=== PATIENT | male | born 1940 | race Caucasian/White ===

== ENCOUNTER 2018-11-28 15:11 | Inpatient (IN) | payer OTHER ==
[~2018-11-28] VITALS: Ht 170.2 cm; Wt 74.1 kg
[2018-11-28] VITALS (10 sets, daily range): BP systolic 42–104; BP diastolic 31–66
[2018-11-28] MEDS ORDERED: ONDANSETRON HCL 4MG/2ML INJ IV STA (15:39)
[2018-11-28] MEDS ORDERED: SODIUM CHLORIDE 0.9% 1,000 ML IV ONE ×3 (15:39→17:41)
[2018-11-28] MEDS ORDERED: MORPHINE SULFATE 4 MG/ML CPJ (NOT FOR IM USE) IV STA (15:39)
[2018-11-28 16:09] LABS: BASOPHILS % 0.6 % (0.0-2.0); EOSINOPHILS % 1.7 % (0.0-5.0); HEMATOCRIT. 43.1 % (42.0-52.0); HEMOGLOBIN. 13.5 g/dL (14.0-18.0); LYMPHOCYTES % 12.1 % (20.0-50.0); MEAN CORPUSCULAR HEMOGLOBIN 24.2 pg (28.0-32.0); MEAN PLATELET VOLUME 7.9 fl (7.4-10.4); MONOCYTES % 5.2 % (2.0-8.0); NEUTROPHILS % 80.4 % (40.0-76.0); PLATELET 376 x1000/uL (130-400); RED BLOOD CELL COUNT 5.59 mill/uL (4.7-6.1)
[2018-11-28 16:11] LABS: CHLORIDE 108 mEq/L (98-107)
[2018-11-28 16:12] LABS: INR 1.1; PROTHROMBIN TIME 11.6 sec (9.6-11.0)
[2018-11-28] MEDS ORDERED: SODIUM CHLORIDE 0.9% 1000ML BAG (SEPSIS BOLUS) IV ONE (16:45)
[2018-11-28] MEDS ORDERED: PIPERACILLIN/TAZ 3.375G PREMIX 50 ML IV ONE (16:45)
[2018-11-28] MEDS ORDERED: METRONIDAZOLE 500 MG PREMIX 100 ML IV ONE (17:30)
[2018-11-28] MEDS ORDERED: VANCOMYCIN 1 G PREMIX 200 ML IV ONE (17:30)
[2018-11-28] MEDS ORDERED: BUPIVACAINE HCL 0.5% (5MG/ML) 50ML ONE (17:45)
[2018-11-28] MEDS ORDERED: FENTANYL CITRATE/PF 50MCG/ML 2ML VIAL ONE (18:54)
[2018-11-28] MEDS ORDERED: ROCURONIUM BROMIDE 10MG/ML VIAL 5ML IV ONE ×2 (18:54→21:10)
[2018-11-28] MEDS ORDERED: MIDAZOLAM HCL 2 MG/2 ML VIAL ONE (18:54)
[2018-11-28] MEDS ORDERED: LIDOCAINE HCL/PF 1% 10 MG/ML 5ML VIAL ONE (18:54)
[2018-11-28] MEDS ORDERED: NEOSTIGMINE METHYLSULFATE 1MG/ML 10 ML VIAL ONE (18:54)
[2018-11-28] MEDS ORDERED: ETOMIDATE 2MG/ML 10ML VIAL IV ONE (18:54)
[2018-11-28] MEDS ORDERED: GLYCOPYRROLATE 0.2 MG/ML 2ML VIAL ONE (18:54)
[2018-11-28] MEDS ORDERED: NOREPINEPHRINE 4 MG in DEXTROSE 5% WATER 250 ML IV ONE (19:15)
[2018-11-28 20:06] LABS: BG BASE EXCESS -16.5 mmol/L (-2.0-2.0); BG CARBOXYHEMOGLOBIN 0.2 % (0.5-1.5); BG FRACTION INSPIRED OXYGEN 100; BG HCO3 ACT 13.6 mmol/L (22.0-26.0); BG METHEMOGLOBIN 0.5 % (0.0-1.5); BG OXYGEN SATURATION 91.9 % (92.0-98.5); BG OXYHEMOGLOBIN 91.3 % (94.0-97.0); BG PCO2 50.6 mmHg (35.0-45.0); BG PH 7.047 (7.350-7.450); BG PO2 87.7 mmHg (75.0-100.0); BG SAMPLE SITE LEFT RADIAL; BG TOTAL HEMOGLOBIN 11.3 g/dL (12.0-18.0); BG VENT MODE VENT - A/C
[2018-11-28] MEDS ORDERED: ONDANSETRON HCL 4MG/2ML INJ ONE (20:46)
[2018-11-28 22:46] LABS: BG BASE EXCESS -17.6 mmol/L (-2.0-2.0); BG CARBOXYHEMOGLOBIN 0.2 % (0.5-1.5); BG DEOXYHEMOGLOBIN 8.9 % (0.0-5.0); BG FRACTION INSPIRED OXYGEN 100; BG HCO3 ACT 13.4 mmol/L (22.0-26.0); BG METHEMOGLOBIN 0.5 % (0.0-1.5); BG OXYHEMOGLOBIN 90.4 % (94.0-97.0); BG PCO2 55.2 mmHg (35.0-45.0); BG PH 7.004 (7.350-7.450); BG PO2 88.4 mmHg (75.0-100.0); BG PRESSURE SUPPORT 10; BG SAMPLE SITE A-LINE; BG TIDAL VOLUME(mL) 500 mL; BG TOTAL HEMOGLOBIN 11.6 g/dL (12.0-18.0); BG VENT MODE VENT - SIMV; BG VENT RATE 10 set
[2018-11-28] MEDS ORDERED: SODIUM CHLORIDE 0.9% 500 ML IV ONE (23:00)
[2018-11-28] MEDS ORDERED: SODIUM BICARBONATE 8.4% 1 MEQ/ML 50ML SYR IV NR (23:00)
[2018-11-28] MEDS ORDERED: PROPOFOL 10MG/ML 100ML 100 ML IV PRN (23:00)
[2018-11-28] MEDS ORDERED: PHENYLEPHRINE 40 MG in DEXT 5% WATER 246 ML IV PRN (23:15)
[2018-11-28] MEDS: SODIUM BICARBONATE 100 MEQ in DEXTROSE 5% WATER 1,000 ML IV SCH (23:59)
[2018-11-29] VITALS (85 sets, daily range): BP systolic 24–244; BP diastolic -5–290
[2018-11-29] MEDS: PHENYLEPHRINE 40 MG in DEXT 5% WATER 246 ML IV PRN ×5 (00:01→13:37)
[2018-11-29] MEDS: IPRATROPIUM BROMIDE (0.02%) 0.5MG/2.5ML NEB HHN PRN ×2 (00:13→04:28)
[2018-11-29 00:50] LABS: BG BASE EXCESS -13.6 mmol/L (-2.0-2.0); BG CARBOXYHEMOGLOBIN 0.4 % (0.5-1.5); BG DEOXYHEMOGLOBIN 17.3 % (0.0-5.0); BG FRACTION INSPIRED OXYGEN 100; BG METHEMOGLOBIN 0.4 % (0.0-1.5); BG OXYGEN SATURATION 82.6 % (92.0-98.5); BG OXYHEMOGLOBIN 81.9 % (94.0-97.0); BG PCO2 38.8 mmHg (35.0-45.0); BG PH 7.175 (7.350-7.450); BG PO2 57.1 mmHg (75.0-100.0); BG SAMPLE SITE A-LINE; BG TIDAL VOLUME(mL) 500 mL; BG TOTAL HEMOGLOBIN 11.6 g/dL (12.0-18.0); BG VENT MODE VENT - A/C; BG VENT RATE 18 set
[2018-11-29] MEDS ORDERED: SODIUM BICARBONATE 8.4% 1 MEQ/ML 50ML SYR IV SCH ×2 (01:00→10:00)
[2018-11-29] MEDS: VASOPRESSIN 10 UNIT in SODIUM CHLORIDE 0.9% 99.5 ML IV PRN ×4 (02:44→11:41)
[2018-11-29] MEDS: NOREPINEPHRINE 32 MG in DEXT 5% WATER 468 ML IV PRN ×2 (02:45→13:38)
[2018-11-29] MEDS ORDERED: SODIUM CHLORIDE 0.9% 500 ML IV ONE (04:45)
[2018-11-29 06:23] LABS: HEMATOCRIT 39.4 % (42.0-52.0); HEMOGLOBIN 11.7 g/dL (14.0-18.0); MEAN CORPUSCULAR VOLUME 81.2 fL (80.0-94.0); PLATELET 348 x1000/uL (130-400); RED BLOOD CELL COUNT 4.86 mill/uL (4.7-6.1); RED CELL DISTRIBUTION WIDTH 19.1 % (11.6-14.6)
[2018-11-29 10:23] LABS: BG BASE EXCESS -16.1 mmol/L (-2.0-2.0); BG CARBOXYHEMOGLOBIN 0.3 % (0.5-1.5); BG DEOXYHEMOGLOBIN 21.8 % (0.0-5.0); BG FRACTION INSPIRED OXYGEN 100; BG HCO3 ACT 13.3 mmol/L (22.0-26.0); BG METHEMOGLOBIN 0.4 % (0.0-1.5); BG OXYHEMOGLOBIN 77.5 % (94.0-97.0); BG PCO2 45.3 mmHg (35.0-45.0); BG PH 7.084 (7.350-7.450); BG SAMPLE SITE LEFT FEMORAL; BG TIDAL VOLUME(mL) 500 mL; BG TOTAL HEMOGLOBIN 11.6 g/dL (12.0-18.0); BG VENT MODE VENT - A/C; BG VENT RATE 18 set
[2018-11-29] MEDS: SODIUM BICARBONATE 100 MEQ in DEXTROSE 5% WATER 1,000 ML IV SCH (10:27)
[2018-11-29] MEDS: SODIUM BICARBONATE 8.4% 1 MEQ/ML 50ML SYR IV NR ×2 (10:28→10:39)
[2018-11-29] MEDS ORDERED: SODIUM CHLORIDE 0.9% 1000ML BAG (SEPSIS BOLUS) IV ONE (10:36)
[2018-11-29] MEDS ORDERED: DOPAMINE 400MG/250ML PREMIX 250 ML IV PRN ×2 (10:40→11:00)
[2018-11-29] MEDS ORDERED: PIPERACILLIN/TAZOBACTAM 3.375 G in DEXT 5% WATER 100 ML IV SCH (10:45)
[2018-11-29] MEDS ORDERED: PANTOPRAZOLE SODIUM 40 MG/VIAL IV SCH (10:45)
[2018-11-29] MEDS ORDERED: ONDANSETRON HCL 4MG/2ML INJ IV PRN (10:45)
[2018-11-29] MEDS ORDERED: SODIUM CHLORIDE 0.9% 500ML IV NR (11:00)
[2018-11-29] MEDS ORDERED: CALCIUM GLUCONATE 1,000 MG in DEXT 5% WATER 90 ML IV NR (11:30)
[2018-11-29] MEDS ORDERED: SODIUM CHLORIDE 0.9% 1000ML BAG IV ONE (11:30)
[2018-11-29] MEDS ORDERED: PHENYLEPHRINE 80 MG in DEXT 5% WATER 492 ML IV PRN ×2 (12:00→12:15)
[2018-11-29] MEDS ORDERED: PIPERACILLIN/TAZOBACTAM 2.25 G in DEXTROSE 5% WATER 50 ML IV SCH (12:00)
[2018-11-29] MEDS ORDERED: PHENYLEPHRINE 40 MG in DEXT 5% WATER 500 ML IV ONE (12:00)
[2018-11-29] MEDS ORDERED: SODIUM BICARBONATE 8.4% 1 MEQ/ML 50ML SYR IV NR (12:45)
[2018-11-29] MEDS ORDERED: PHENYLEPHRINE 40 MG in DEXTROSE 5% WATER 250 ML IV PRN (13:00)
[2018-11-29 13:25] LABS: BG BASE EXCESS -18.3 mmol/L (-2.0-2.0); BG CARBOXYHEMOGLOBIN 0.2 % (0.5-1.5); BG DEOXYHEMOGLOBIN 24.4 % (0.0-5.0); BG FRACTION INSPIRED OXYGEN 100; BG HCO3 ACT 11.5 mmol/L (22.0-26.0); BG METHEMOGLOBIN 0.4 % (0.0-1.5); BG OXYGEN SATURATION 75.5 % (92.0-98.5); BG PCO2 43.3 mmHg (35.0-45.0); BG PH 7.041 (7.350-7.450); BG PO2 47.6 mmHg (75.0-100.0); BG SAMPLE SITE LEFT FEMORAL; BG TIDAL VOLUME(mL) 500 mL; BG VENT MODE VENT - A/C; BG VENT RATE 26 set
[2018-11-29] MEDS ORDERED: SODIUM BICARBONATE 150 MEQ in DEXTROSE 5% WATER 1,000 ML IV SCH (15:00)
[2018-11-29] MEDS ORDERED: LORAZEPAM 2MG/ML CPJ IV PRN (15:15)
[2018-11-29] MEDS ORDERED: MORPHINE SULFATE 2 MG/ML CPJ (NOT FOR IM USE) IV PRN (15:15)
== END 2018-11-29 15:38 | disposition expired | DRG 853 ==
LOC: ER 15:11 → EDBEDREQSVC 17:38 → EDBEDREQ 17:38 → EDBEDREQTM 17:38 → ENRESERV 18:00 → ER 18:06 → ENRESERV 19:17 → CVICU 22:00
PROVIDERS: ADMIT Internal Medicine; ATTEND Internal Medicine
PROC: 0DBL0ZZ Excision of Transverse Colon, Open Approach (ICD-10-PCS; principal; 2018-11-28)
PROC: 0D1L0Z4 Bypass Transverse Colon to Cutaneous, Open Approach (ICD-10-PCS; 2018-11-28)
PROC: 0DN80ZZ Release Small Intestine, Open Approach (ICD-10-PCS; 2018-11-28)
PROC: 05HY33Z Insertion of Infusion Device into Upper Vein, Percutaneous Approach (ICD-10-PCS; 2018-11-29)
PROC: B54MZZA Ultrasonography of Right Upper Extremity Veins, Guidance (ICD-10-PCS; 2018-11-29)
DX: A41.9 Sepsis, unspecified organism (principal); J96.01 Acute respiratory failure with hypoxia; N17.0 Acute kidney failure with tubular necrosis; R65.21 Severe sepsis with septic shock; K63.1 Perforation of intestine (nontraumatic); K55.9 Vascular disorder of intestine, unspecified; E44.1 Mild protein-calorie malnutrition; E87.2 Acidosis; K40.30 Unilateral inguinal hernia, with obstruction, without gangrene, not specified as recurrent; E83.51 Hypocalcemia; D64.9 Anemia, unspecified; E87.8 Other disorders of electrolyte and fluid balance, not elsewhere classified; Z66 Do not resuscitate; N40.0 Benign prostatic hyperplasia without lower urinary tract symptoms; Z85.048 Personal history of other malignant neoplasm of rectum, rectosigmoid junction, and anus; Z82.49 Family history of ischemic heart disease and other diseases of the circulatory system; Z87.891 Personal history of nicotine dependence; Z68.25 Body mass index [BMI] 25.0-25.9, adult
CPT/HCPCS: 36415; 36600; 71045; 74177; 76937; 80048; 82330; 82375; 82805; 83605; 84478; 84484; 85027; 87070; 87186; 88307; 93005; 93971; 94003; 94640; 99291; C1725; C9113; J0610; J2250; J2270; J2370; J2405; J2543; J2710; J3010; J3370; J3490; J7030; J7050; J7060; J7070